=== PATIENT | male | born 1970 | race Caucasian/White ===

== ENCOUNTER 2017-02-11 14:57 | Emergency (ER) | payer MEDICAID ==
[~2017-02-11] VITALS: Ht 165.1 cm; Wt 82.0 kg
[~2017-02-11 14:57] MED LIST: ACET325T33 PO; CYCL-319 PO; NAPR-260 PO
[2017-02-11 14:59] VITALS: Ht 165.1 cm; Wt 82.0 kg
[2017-02-11] MEDS ORDERED: IBUPROFEN 600 MG TAB PO ONE (15:30)
--- NOTE | 2017-02-11 16:08 | RADRPT ---
PROCEDURE: US DVT. CLINICAL INDICATION: Left lower extremity pain and swelling. TECHNIQUE: Multiple longitudinal and transverse images of the left lower extremity veins were obta ined with whitfield scale and color Doppler imaging. 2D grayscale measurements with compression, color D oppler flow, and augmentation was performed. The calf veins were interrogated as well. COMPARISON: No prior studies are available for comparison. FINDINGS: The left common femoral, femoral and popliteal veins are normally compressible throughout. Color flow demonstrates normal filling of the vessel. Normal waveforms are visualized and there is normal response to augmentation. The calf veins are visualized and are equally unremarkable. IMPRESSION: 1. No evidence of a deep vein thrombosis involving the left lower extremity. RPTAT: QQ .Sánchez Anderson MD, MD Date Time Electronically viewed and signed by .Sánchez Anderson MD, on 02/11/2017 16:08 .M/
--- NOTE | 2017-02-11 17:44 | RADRPT ---
PROCEDURE: X-RAY LEFT KNEE CLINICAL INDICATION: Left knee pain TECHNIQUE: 6 views of the left knee are available for review. COMPARISON: None available FINDINGS: There is a small joint effusion. No evidence for fracture, subluxation or dislocation. There is mi ld patellofemoral arthrosis. No erosive changes are seen. IMPRESSION: 1. Small joint effusion which could be synovitis. 2. No erosive changes, bone destructive changes or fracture identified. RPTAT: XX .Be Evans MD, Date Time Electronically viewed and signed by .Be Evans MD, on 02/11/2017 17:43 .T/
[2017-02-11] MEDS ORDERED: IBUP-1542 PO (17:49)
--- NOTE | 2017-02-11 18:09 | ERD ---
ER Documentation Chief Complaint Date/Time DATE: 02/11/17 TIME: 18:03 Chief Complaint left knee pain, radiates to the foot HPI This is a 46-year-old male presents to the ER with left knee pain that has been going on for the last week. Patient states that knee pain is located on the medial portion of his knee and radiates down his leg. Pain is throbbing in quality. He has not tried anything for the pain. Patient did admit to some calf swelling which is now reduced. 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 Patient denies any fevers or chills. He denies any trauma to his knee. ROS 12 point review of systems was done, all negative except per HPI. Medications Home Meds Active Scripts Ibuprofen* (Motrin*) 600 Mg Tab, 600 MG PO Q6, #30 TAB Prov:LIBERTY SINGH 02/11/17 Acetaminophen* (Tylenol*) 325 Mg Tablet, 2 TAB PO Q8 Y for PAIN AND OR ELEVATED TEMP, #20 TAB Prov:BRUCE MENEZES DO 03/05/15 Naproxen* (Naprosyn*) 500 Mg Tablet, 500 MG PO BID Y for PAIN AND/OR INFLAMMATION, #14 TAB Prov:RIRIBRUCE DO 03/05/15 Cyclobenzaprine Hcl* (Cyclobenzaprine Hcl*) 10 Mg Tablet, 10 MG PO TID, #6 TAB Prov:BRUCE MENEZES DO 03/05/15 PMhx/Soc Medical and Surgical Hx: pt denies Medical Hx, pt denies Surgical Hx Hx Alcohol Use: No Hx Substance Use: No Hx Tobacco Use: No Smoking Status: Never smoker Physical Exam Vitals Vital Signs Date Time Temp Pulse Resp B/P Pulse Ox O2 Delivery O2 Flow Rate FiO2 02/11/17 14:59 99.0 77 19 121/76 98 Physical Exam GENERAL: The patient is well developed and appropriate for usual state of health , in no apparent distress. HEENT: Atraumatic. CHEST: Clear to auscultation bilaterally. There are no rales, wheezes or rhonchi. HEART: Regular rate and rhythm. No murmurs, clicks, rubs or gallops. EXTREMITIES: Patient able to bear weight and ambulate without any pain. No surface trauma or obvious effusion. No overlying erythema or warmth. The left knee is without obvious deformity or asymmetry compared to the right knee. Patient has normal range of motion of the knee. Nontender to palpation to the patella, no effusion. Patient is tender to palpation along the medial knee. Negative anterior drawer negative posterior drawer negative Blair test. Distal motor neurovascular status intact. NEURO: Alert and oriented. Results 24 hrs Current Medications Medications (Trade) Dose Ordered Sig/Valdo Route PRN Reason Start Time Stop Time Status Last Admin Dose Admin Ibuprofen (Motrin) 600 mg ONCE ONCE PO 02/11/17 15:30 02/11/17 15:31 DC 02/11/17 15:19 Procedures/MDM This is a 46-year-old male presents to the ER with knee pain. At this time there is no evidence of fracture dislocation. Patient did have some synovitis this is likely due to constant time on these at work. Patient is afebrile and well-appearing. Suspicion for infectious etiology such as septic joint, osteomyelitis is low. I doubt compartment syndrome. She will be sent with ibuprofen. Needs follow-up with his primary care doctor within 1-2 days or return to ER sooner if symptoms worsen. My medical decision making shared with the patient he understands and agrees with plan. Departure Diagnosis: Primary Impression: Knee pain Condition: Stable Patient Instructions: Knee Pain, Uncertain Cause Additional Instructions: Llame al doctor EMILY y breanne mansi JANNY PARA DENTRO DE 1-2 HODGSON.Dgale a la secretaria que nosotros le instruimos hacer esta janny.Avise o llame si bai condicin se empeora antes de la janny. Regresa aqui si peor o no mejor. LIBERTY SINGH Feb 11, 2017 18:09
== END 2017-02-11 17:58 | disposition home or self-care (01) ==
LOC: FTE 14:57
DX: M25.562 Pain in left knee (principal)
CPT/HCPCS: 73562; 93971; Z7610

== ENCOUNTER 2017-09-26 08:44 | Emergency (ER) | END 2017-09-26 12:23 | disposition left against medical advice (07) ==